=== PATIENT | female | born 1960 | race Caucasian/White ===

== ENCOUNTER 2022-07-26 11:26 | Outpatient (CLI) | payer OTHER | END 2022-07-26 11:27 | disposition home or self-care (01) | LOC: CSHMAMMO 11:26 | PROVIDERS: ATTEND Family Medicine | DX: Z12.31 Encounter for screening mammogram for malignant neoplasm of breast (principal); Z85.850 Personal history of malignant neoplasm of thyroid | CPT/HCPCS: 77063; 77067 ==